=== PATIENT | female | born 1970 | race Two or more races ===

== ENCOUNTER 2017-02-28 09:17 | Emergency (ER) | payer OTHER ==
[~2017-02-28] VITALS: Ht 144.8 cm; Wt 57.8 kg
[~2017-02-28 09:17] MED LIST: CEFD300C37 PO; OMEP-110 PO; ONDA4TAB13 PO; TRAM50TA2 PO
[2017-02-28 11:37] VITALS: BP 124/70
== END 2017-02-28 12:17 | disposition home or self-care (01) ==
LOC: ED 10:20
DX: S30.0XXA Contusion of lower back and pelvis, initial encounter (principal); W19.XXXA Unspecified fall, initial encounter; Y93.89 Activity, other specified; Y92.89 Other specified places as the place of occurrence of the external cause; Y99.9 Unspecified external cause status
CPT/HCPCS: 72170; 72220; 99284